=== PATIENT | male | born 1985 | race Two or more races ===

== ENCOUNTER 2020-04-03 08:25 | Day surgery (SDC) | payer OTHER | END 2020-04-03 13:20 | disposition home or self-care (01) | LOC: AMB-ENDOS 08:25 | PROVIDERS: ATTEND Surgery | DX: K63.5 Polyp of colon (principal); K64.8 Other hemorrhoids; Z20.828 Contact with and (suspected) exposure to other viral communicable diseases ==

== ENCOUNTER → 2020-04-28 07:12 | Outpatient (CLI) | payer OTHER | END | disposition home or self-care (01) | LOC: LAB 07:12 | PROVIDERS: ATTEND Surgery | DX: R10.84 Generalized abdominal pain (principal); Z20.828 Contact with and (suspected) exposure to other viral communicable diseases; I10 Essential (primary) hypertension; K43.2 Incisional hernia without obstruction or gangrene; Z03.818 Encounter for observation for suspected exposure to other biological agents ruled out ==

== ENCOUNTER 2020-05-03 05:56 | Inpatient (IN) | payer OTHER ==
[2020-05-04] MEDS ORDERED: MIRALAX17 GM PO (07:49)
[2020-05-04] MEDS ORDERED: ULTRAM50 MG PO (07:49)
[2020-05-04] MEDS ORDERED: NEURONTIN300 MG PO (07:49)
[2020-05-04] MEDS ORDERED: TYLENOL ARTHRI650 MG PO (07:49)
== END 2020-05-04 17:59 | disposition home or self-care (01) | DRG 355 ==
LOC: CIR.AMB 05:56 → SURH 12:13 → O/R 12:13 → SURH 13:28
PROVIDERS: ADMIT Surgery; ATTEND Surgery
PROC: 0WUF4JZ Supplement Abdominal Wall with Synthetic Substitute, Percutaneous Endoscopic Approach (ICD-10-PCS; 2020-05-03)
PROC: 0KXG0ZZ Transfer Left Trunk Muscle, Open Approach (ICD-10-PCS; 2020-05-03)
PROC: 0KXF0ZZ Transfer Right Trunk Muscle, Open Approach (ICD-10-PCS; 2020-05-03)
PROC: 0WUF4JZ Supplement Abdominal Wall with Synthetic Substitute, Percutaneous Endoscopic Approach (ICD-10-PCS; principal; 2020-05-03 07:00)
DX: K43.0 Incisional hernia with obstruction, without gangrene (principal); K42.0 Umbilical hernia with obstruction, without gangrene

== ENCOUNTER 2020-05-06 15:27 | Inpatient (IN) | payer OTHER ==
[~2020-05-06] VITALS: Ht 167.6 cm; Wt 81.6 kg
[~2020-05-06 15:27] MED LIST: MIRALAX17 GM PO; NEURONTIN300 MG PO; TYLENOL ARTHRI650 MG PO; ULTRAM50 MG PO
--- NOTE | 2020-05-06 15:39 | NUR ---
SE RECIBE PTE ALERTA Y ORIENTADO X3,REFIERE TNER DOLOR ABDOMINAL ,EMESIS X5 LO OPERO EL DR.JUAN EDUARDO DE 4 HERNIAS ,REFIERE QUE EL DOLOR ABDOMINAL SE LE IRRADIA HACIA EL LADO DERECHO TIENE EL AREA DURA LA OPERACON FUE EL JUEVES 24 SEPTIEMBRE.
== END 2020-05-14 09:49 | disposition home or self-care (01) | DRG 337 ==
LOC: ER 15:27 → SURH 16:23
PROVIDERS: ADMIT Surgery; ATTEND Surgery
PROC: 0D9670Z Drainage of Stomach with Drainage Device, Via Natural or Artificial Opening (ICD-10-PCS; 2020-05-06)
PROC: 0DNB4ZZ Release Ileum, Percutaneous Endoscopic Approach (ICD-10-PCS; principal; 2020-05-10 11:15)
DX: K56.51 Intestinal adhesions [bands], with partial obstruction (principal); E86.0 Dehydration; Z20.828 Contact with and (suspected) exposure to other viral communicable diseases

== ENCOUNTER 2020-07-08 13:02 | Emergency (ER) | payer OTHER ==
[~2020-07-08] VITALS: Ht 165.1 cm; Wt 70.3 kg
== END 2020-07-08 22:45 | disposition home or self-care (01) ==
LOC: ER 13:02
DX: R10.84 Generalized abdominal pain (principal); R11.0 Nausea; Z03.818 Encounter for observation for suspected exposure to other biological agents ruled out